=== PATIENT | female | born 1985 | race Caucasian/White ===

== ENCOUNTER 2020-12-12 01:04 | Day surgery (SDC) | payer BC, SELFPAY ==
[2020-11-10 18:01] VITALS: BMI 28.4
--- NOTE | 2020-11-13 10:51 | P.PNAN_ITS ---
Anes - Initial Pre Proc Eval Procedure: Operation Date: 11/14/20 07:30 Proposed Procedures p Loop Electrical Excision Procedure - Tamra Alvarez MD Date/Time: 11/13/20 10:51 Surgeon: Tamra Alvarez MD Pre Op Diagnosis: CHAD II Patient Data Age: 35 Gender: F Height: 5 ft 6 in Weight: 80 kg Allergies Allergy/AdvReac Type Severity Reaction Status Date / Time No Known Allergies Allergy Verified 10/09/20 14:02 Home Medications Medication Instructions Recorded Confirmed Type albuterol sulfate 90 mcg/actuation 1 puff INHALATION Q4H PRN 06/05/20 11/10/20 History aerosol inhaler budesonide 180 mcg/actuation 1 inhalation INHALATION DAILY 06/05/20 11/10/20 H istory breath activated powder inhaler loratadine 10 mg tablet 10 mg PO DAILY 06/05/20 11/10/20 History alprazolam 0.5 mg PO BID PRN 11/10/20 11/10/20 History vit 47-pyeb-[id number]-dss tablet PO DAILY 11/10/20 History PMFSH Past Medical History Medical History (Updated 11/13/20 @ 10:51 by Samm Bey MD) Active asthma Anxiety Seasonal allergies Family History Family History (Updated 06/05/20 @ 11:12 by Cris Warner MA) Grandparent Family history of malignant neoplasm of breast Diabetes mellitus Mother Family history of malignant neoplasm of breast in first degree relative Father Irregular heartbeat Social History Social History Smoking status: Never smoker Alcohol intake: current Substance use: never Gender identity (if verbalized by the patient): Female Spiritual care concerns: No Anes - Eval Final PreProcedure Day of Procedure 11/13/20 10:51 Informed Consent: The patient's anesthetic plan and its attendant risks and b enefits were discussed with the patient/family/POA. Questions were solicited and answers provided to the satisfaction of the patient/family/POA.
--- NOTE | 2020-11-13 16:02 | PM.IMHP ---
H&P: HPI History of Present Illness Date/Time: 11/13/20 16:02 The patient is a 35yo nulligravid woman with a history of CHAD 2 who presents for a scheduled LEEP. Patient had a routine pap smear in 05/2020 that showed LGSIL. A colposcopy was performed in 09/2020 and cervical biopsies confirmed CHAD 2. ECC was also positive for CHAD 2. Discussion had with patient and decision made proceed with LEEP procedure. Chief Complaint: high grade cervical dysplasia Narrative: Delma Catherine is a 35 year old female Review of Systems Review of Systems: All systems reviewed & are unremarkable except as noted in HPI and below Constitutional: Constitutional: Reports as per HPI, Reports no additional constitutional complaints, Denies chills, Denies fever(s), Denies headache(s) and Denies night sweats Eyes: Eyes: Reports as per HPI and Reports no additional eye complaints ENT: Reports system reviewed and no additional complaints, except as documented, Reports as per HPI, Reports Normal hearing present and Denies headache(s) Cardiovascular: Cardiovascular: Reports as per HPI, Reports no additional cardiovascular complaints, Denies chest pain and Denies dyspnea Respiratory: Respiratory: Reports as per HPI, Reports no additional respiratory complaints, Denies cough and Denies dyspnea Gastrointestinal: Gastrointestinal: Reports as per HPI, Reports no additional gastrointestinal complaints, Denies abdominal pain, Denies change in bowel habits, Denies change in stool character, Denies nausea and Denies vomiting Genitourinary: Genitourinary: Reports no additional female genitourinary complaints, Reports as per HPI, Denies abnormal vaginal bleeding, Denies genital lesions, Denies hot flashes, Denies dyspareunia, Denies pelvic pain, Denies sexual dysfunction, Denies urinary incontinence, Denies vaginal discharge, Denies vaginal dryness and Denies vaginal odor Musculoskeletal: Musculoskeletal: Reports no additional musculoskeletal complaints and Reports as per HPI Integumentary/Breasts: Skin/Breast: Reports system reviewed and no additional complaints, except as docu, Reports as per HPI, Denies breast pain and Denies nipple discharge Neurologic: Reports system reviewed and no additional complaints, except as documented, Reports as per HPI, Reports Normal hearing present and Denies headache(s) Psychiatric: Psychiatric: Reports no additional psychiatric complaints, Reports as per HPI, Denies anxiety and Denies depression Endocrine: Endocrine: Reports no additional endocrine complaints and Reports as per HPI Hematologic/Lymphatic: Hematologic/Lymphatic: Reports no additional hematologic/lymphatic complaints and Reports as per HPI Allergic/Immunologic: Allergic/Immunologic: Reports no additional allergic/immunologic complaints and Reports as per HPI PMFSH Past Medical History Medical History Active asthma Anxiety Seasonal allergies Family History Family History Grandparent Family history of malignant neoplasm of breast Diabetes mellitus Mother Family history of malignant neoplasm of breast in first degree relative Father Irregular heartbeat Social History Social History Smoking status: Never smoker Alcohol intake: current Substance use: never Gender identity (if verbalized by the patient): Female Spiritual care concerns: No Meds Home Medications and Allergies Home Medications Medication Instructions Recorded Confirmed Type albuterol sulfate 90 mcg/actuation 1 puff INHALATION Q4H PRN 06/05/20 11/10/20 History aerosol inhaler budesonide 180 mcg/actuation 1 inhalation INHALATION DAILY 06/05/20 11/10/20 History breath activated powder inhaler loratadine 10 mg tablet 10 mg PO DAILY 06/05/20 11/10/20 History alprazolam 0.5 mg PO BID PRN 11/10/20 11/10/20 History vit 15-iron
[2020-12-08 11:29] VITALS: BMI 28.2
--- NOTE | 2020-12-08 12:16 | PC.NURSE ---
Pt states no change i health history since previous interview. Medications and new instructions discussed with pt.
--- NOTE | 2020-12-11 09:48 | WPDANESEPPF ---
Anes - Initial Pre Proc Eval Procedure: Operation Date: 12/12/20 07:30 Proposed Procedures p Loop Electrical Excision Procedure - Tamra Alvarez MD Date/Time: 12/11/20 09:48 Surgeon: Tamra Alvarez MD Pre Op Diagnosis: CHAD II Patient Data Age: 35 Gender: F Height: 1.68 m Weight: 79.4 kg Allergies Allergy/AdvReac Type Severity Reaction Status Date / Time oxycodone AdvReac Mild Nausea and Verified 12/12/20 06:26 Vomiting Home Medications Medication Instructions Recorded Confirmed Type albuterol sulfate 90 mcg/actuation 1 puff INHALATION Q4H PRN 06/05/20 12/12/20 History aerosol inhaler loratadine 10 mg tablet 10 mg PO DAILY 06/05/20 12/12/20 History alprazolam 0.5 mg PO BID PRN 11/10/20 12/12/20 History vit 19-ciof-qgdqz-dss 1 tablet PO DAILY 11/10/20 12/12/20 History budesonide 0.6 mg INHALATION DAILY 12/08/20 12/12/20 History meloxicam 15 mg PO DAILY 12/08/20 12/12/20 History Patient hx anesthesia problems: none Family hx anesthesia problems: none PMFSH Past Medical History Medical History Active asthma Anxiety Seasonal allergies Family History Family History Grandparent Family history of malignant neoplasm of breast Diabetes mellitus Mother Family history of malignant neoplasm of breast in first degree relative Father Irregular heartbeat Social History Social History Smoking status: Never smoker Alcohol intake: current Substance use: never Living arrangements: with family Gender identity (if verbalized by the patient): Female Sexual Orientation (if Verbalized by the Patient): Straight or Heterosexual Spiritual care concerns: No Anes - Eval Final PreProcedure Day of Procedure 12/11/20 09:48 Patient weight: overweight Heart: regular rate and rhythm Lungs: clear to auscultation and normal air movement Airway: Mallampati scale class II Neurological: alert and oriented Last oral intake: >/= 8 hours ASA classification: II Emergent: no Anesthetic plan: proceed Anesthesia type and monitoring: general GIVS and standard monitoring Informed Consent: The patient's anesthetic plan and its attendant risks and benefits were discussed with the patient/family/POA. Questions were solicited and answers provided to the satisfaction of the patient/family/POA.
[2020-12-12 06:34] VITALS: BP 108/73; PULSE 74; RESP 16; TEMP 36.3; O2SAT 100; BMI 25.9
[2020-12-12] MEDS: LACTATED RINGERS 1,000 ML 30 ML IV CONT (06:50)
[2020-12-12] MEDS: ACETAMINOPHEN 500 MG TABLET 1000 MG PO (06:51)
--- NOTE | 2020-12-12 06:58 | SUR.PREOP ---
PT ANXIOUS. ASKING FOR SOMETHING FOR HER NERVES. DR PEDERSON ORDERED VERSED
[2020-12-12] MEDS: MIDAZOLAM HCL (*CRX) 2 MG/2 ML VIAL IV PUSH (07:01)
--- NOTE | 2020-12-12 07:21 | PM.IMHP ---
H&P: HPI History of Present Illness Date/Time: 12/12/20 07:21 The patient is a 35yo nulligravid woman with a history of CHAD 2 who presents for a scheduled LEEP. Patient had a routine pap smear in 05/2020 that showed LGSIL. A colposcopy was performed in 09/2020 and cervical biopsies confirmed CHAD 2. ECC was also positive for CHAD 2. Discussion had with patient and decision made proceed with LEEP procedure. Chief Complaint: high grade cervical dysplasia Review of Systems Review of Systems: All systems reviewed & are unremarkable except as noted in HPI and below Constitutional: Constitutional: Reports as per HPI, Reports no additional constitutional complaints, Denies chills, Denies fever(s), Denies headache(s) and Denies night sweats Eyes: Eyes: Reports as per HPI and Reports no additional eye complaints ENT: Reports system reviewed and no additional complaints, except as documented, Reports as per HPI, Reports Normal hearing present and Denies headache(s) Cardiovascular: Cardiovascular: Reports as per HPI, Reports no additional cardiovascular complaints, Denies chest pain and Denies dyspnea Respiratory: Respiratory: Reports as per HPI, Reports no additional respiratory complaints, Denies cough and Denies dyspnea Gastrointestinal: Gastrointestinal: Reports as per HPI, Reports no additional gastrointestinal complaints, Denies abdominal pain, Denies change in bowel habits, Denies change in stool character, Denies nausea and Denies vomiting Genitourinary: Genitourinary: Reports no additional female genitourinary complaints, Reports as per HPI, Denies abnormal vaginal bleeding, Denies genital lesions, Denies hot flashes, Denies dyspareunia, Denies pelvic pain, Denies sexual dysfunction, Denies urinary incontinence, Denies vaginal discharge, Denies vaginal dryness and Denies vaginal odor Musculoskeletal: Musculoskeletal: Reports no additional musculoskeletal complaints and Reports as per HPI Integumentary/Breasts: Skin/Breast: Reports system reviewed and no additional complaints, except as docu, Reports as per HPI, Denies breast pain and Denies nipple discharge Neurologic: Reports system reviewed and no additional complaints, except as documented, Reports as per HPI, Reports Normal hearing present and Denies headache(s) Psychiatric: Psychiatric: Reports no additional psychiatric complaints, Reports as per HPI, Denies anxiety and Denies depression Endocrine: Endocrine: Reports no additional endocrine complaints and Reports as per HPI Hematologic/Lymphatic: Hematologic/Lymphatic: Reports no additional hematologic/lymphatic complaints and Reports as per HPI Allergic/Immunologic: Allergic/Immunologic: Reports no additional allergic/immunologic complaints and Reports as per HPI PMFSH Past Medical History Medical History Active asthma Anxiety Seasonal allergies Family History Family History Grandparent Family history of malignant neoplasm of breast Diabetes mellitus Mother Family history of malignant neoplasm of breast in first degree relative Father Irregular heartbeat Social History Social History Smoking status: Never smoker Alcohol intake: current Substance use: never Living arrangements: with family Gender identity (if verbalized by the patient): Female Sexual Orientation (if Verbalized by the Patient): Straight or Heterosexual Spiritual care concerns: No Meds Home Medications and Allergies Home Medications Medication Instructions Recorded Confirmed Type albuterol sulfate 90 mcg/actuation 1 puff INHALATION Q4H PRN 06/05/20 12/12/20 History aerosol inhaler loratadine 10 mg tablet 10 mg PO DAILY 06/05/20 12/12/20 History alprazolam 0.5 mg PO BID PRN 11/10/20 12/12/20 History vit 37-vvpr-fdngb-dss 1 tablet PO DAILY 11/10/20 12/12/20 History bu
--- NOTE | 2020-12-12 07:23 | WPDHPUPDATE1 ---
History and Physical Update Update Date/Time: 12/12/20 07:23 History and Physical has been reviewed, including an updated exam of the patient. There are NO changes in the patient's condition. Risks, benefits, and alternatives have been discussed and questions answered. Patient agrees to proceed with procedure.
--- NOTE | 2020-12-12 07:29 | PM.PROC ---
Procedure Note - Detailed Date of procedure: 12/12/20 Pre-op diagnosis: CHAD II Post-op diagnosis: same Procedure performed: Loop electrosurgical excision procedure (LEEP) Description of procedure: The patient was taken to the operating room where she self-transferred to the operating room table. She was placed in dorsal supine position. Anesthesia was administered and found to be adequate. The patient was repositioned in dorsal lithotomy position and prepped and draped in the usual sterile fashion. A coated bivalve speculum was inserted into the vagina and suction tubing was connected to the speculum. The cervix was well visualized. A paracervical block was performed with 1% lidocaine. 5 cc of lidocaine was administered on both sides for a total of 10 cc. Lugol's solution was applied across the entire surface of the cervix. A wide area of non-uptake was noted circumferentially around the cervix. A medium-size loop was selected and connected to the electrical generator. This loop was used to excise a portion of the anterior surface of the cervix, including the cervical os. A single pass was made. The specimen was removed and set aside. An endocervical curettage was performed. Rollerball cautery was used to cauterize the entire excision site and margins of the excision bed. Excellent hemostasis was noted. The procedure was deemed complete. The vagina was dried and the speculum was removed. The anterior portion of the cervix was tagged at 12:00 with a suture. Specimen were prepared to be sent to pathology for analysis. The patient was cleansed and dried. She was taken out of the dorsal lithotomy position and awakened from anesthesia without difficulty. She was transported to the recovery room in stable condition. All sponge and instrument counts were correct at the end of the procedure. Anesthesia: MAC Surgeon: Tamra Alvarez MD Estimated blood loss (mL): 5 IV fluids (mL): 600 Drains: No Packing: No Pathology: yes (anterior portion of cervix, tagged at 12:00) Complications: No immediate complications Condition: stable Disposition: same day Findings: Wide area of non uptake noted circumferentially around cervix
[2020-12-12 08:05] VITALS: BP 117/67; PULSE 74; RESP 14; O2SAT 99
[2020-12-12] MEDS: fentaNYL CITRATE INJ (*CRX) 100 MCG/2 ML VIAL 25 MCG IV PUSH ×3 (08:20→08:40)
[2020-12-12 08:25] VITALS: BP 96/65; PULSE 62; RESP 14; O2SAT 100
[2020-12-12 08:55] VITALS: BP 110/69; PULSE 64; RESP 14; O2SAT 100
[2020-12-12 09:30] VITALS: BP 139/73; PULSE 71; RESP 14; O2SAT 100
[2020-12-12] MEDS: KETOROLAC 30 MG/ML VIAL (*BKC) IV PUSH (09:31)
[2020-12-12 09:45] VITALS: BP 139/73; PULSE 71; RESP 14
== END 2020-12-12 10:14 | disposition home or self-care (01) ==
PROVIDERS: Visit Provider Student in an Organized Health Care Education/Training Program
PROC: 0UBC7ZZ Excision of Cervix, Via Natural or Artificial Opening (ICD-10-PCS; CPT 57522; principal; 2020-12-12 07:30)
DX: D06.1 Carcinoma in situ of exocervix (principal); J45.909 Unspecified asthma, uncomplicated; F41.9 Anxiety disorder, unspecified; Z79.51 Long term (current) use of inhaled steroids
CPT/HCPCS: 57522; 88305; 88307; A9270; J1100; J1885; J2250; J2405; J2704; J3010; J7120